=== PATIENT | male | born 2000 | race African-American/Black ===

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

== ENCOUNTER 2019-06-28 06:36 | Emergency (ER) | payer MEDICAID, OTHER ==
[~2019-06-28] VITALS: Ht 177.8 cm; Wt 77.0 kg
[2019-06-28] MEDS ORDERED: DOCUSATE SODIUM SUGAR FREE 100MG/10ML UDC NG ONE (08:30)
[2019-06-28 09:43] VITALS: BP 151/80
== END 2019-06-28 09:45 | disposition home or self-care (01) ==
LOC: ER 06:36
DX: H61.21 Impacted cerumen, right ear (principal)
CPT/HCPCS: 69209; 99282

== ENCOUNTER 2021-09-14 21:50 | Emergency (ER) | payer MEDICAID, OTHER ==
[~2021-09-14] VITALS: Ht 180.3 cm; Wt 91.4 kg
[2021-09-14] MEDS ORDERED: ACETAMINOPHEN 325MG TABLET PO ONE (23:00)
[2021-09-14] MEDS ORDERED: IBUPROFEN 400MG TABLET PO ONE (23:00)
[2021-09-14 23:49] LABS: CLARITY URINE CLEAR (CLEAR); COLOR URINE YELLOW (YELLOW); KETONES URINE TRACE (NEGATIVE); LEUKOCYTE ESTERASE URINE NEGATIVE (NEGATIVE); NITRITE URINE NEGATIVE (NEGATIVE); OCCULT BLOOD URINE NEGATIVE (NEGATIVE); PH URINE 6.5 (4.5-8.0); PROTEIN URINE NEGATIVE (NEGATIVE); SPECIFIC GRAVITY URINE 1.029 (1.005-1.030)
[2021-09-15] MEDS ORDERED: IBUP-2028 MT (00:57)
[2021-09-15] MEDS ORDERED: TOPUD PO (00:57)
[2021-09-15 01:15] VITALS: BP 134/89
[2021-09-17 05:11] LABS: NEISSERIA GONORRHOEAE NAA Negative (Negative)
== END 2021-09-15 01:15 | disposition home or self-care (01) ==
LOC: ER 21:50
DX: N50.811 Right testicular pain (principal); N43.3 Hydrocele, unspecified
CPT/HCPCS: 76870; 81003; 87491; 87591; 93976; 99284

== ENCOUNTER 2021-09-17 09:53 | Emergency (ER) | payer MEDICAID, OTHER ==
[~2021-09-17] VITALS: Ht 180.3 cm; Wt 91.0 kg
[~2021-09-17 09:53] MED LIST: IBUP-2028 MT; TOPUD PO
[2021-09-17 09:59] VITALS: BP 161/78
== END 2021-09-17 11:48 | disposition home or self-care (01) ==
LOC: ER 09:53
DX: N43.3 Hydrocele, unspecified (principal); N48.89 Other specified disorders of penis
CPT/HCPCS: 99281

== ENCOUNTER → 2023-12-23 | Emergency (ER) | payer MEDICAID, OTHER | LOC: ER 16:12 | DX: R51.9 Headache, unspecified (principal); Z53.21 Procedure and treatment not carried out due to patient leaving prior to being seen by health care provider ==